=== PATIENT | female | born 1990 | race Caucasian/White ===

== ENCOUNTER 2017-05-22 15:14 | Emergency (ER) | payer MEDICAID ==
[2017-05-22] MEDS ORDERED: Proparacaine 0.5% Ophth Soln 15 ML Bottle EYEBOTH STA (15:42)
[2017-05-22 15:49] VITALS: BP 117/76
--- NOTE | 2017-05-22 16:21 | EDM.PDOC ---
ED HPI GENERAL MEDICAL PROBLEM - General Chief Complaint: Eye Problems Stated Complaint: EYE INJURY Time Seen by Provider: 05/22/17 16:07 Source of Information: Reports: Patient, Family, RN Notes Reviewed History Limitations: Reports: No Limitations - History of Present Illness INITIAL COMMENTS - FREE TEXT/NARRATIVE: 26-year-old female presents emergency department today with complaint of trauma to her left eye, this occurred earlier in the day when her 2-year-old accidentally poked her finger into her eye she is having some blurry vision and it is painful when she blinks Left Eye Pain Score (Numeric/FACES): 4 - Related Data Allergies Allergy/AdvReac Type Severity Reaction Status Date / Time No Known Allergies Allergy Verified 05/22/15 00:08 Home Meds: Home Meds NK [No Known Home Meds] 05/22/15 [History] Past Medical History [employer] History: Reports: Other OB/BYN History: irregular periods Social & Family History - Tobacco Use Smoking Status *Q: Former Smoker Years of Tobacco use: 10 Packs/Tins Daily: 1 Used Tobacco, but Quit: No - Caffeine Use Caffeine Use: Reports: Soda - Recreational Drug Use Recreational Drug Use: No ED ROS GENERAL - Review of Systems Review Of Systems: See Below Constitutional: Reports: No Symptoms HEENT: Reports: Eye Discharge, Eye Pain ED EXAM GENERAL W FULL EYE - Physical Exam Exam: See Below Exam Limited By: No Limitations General Appearance: Alert, WD/WN, No Apparent Distress Visual Acuity (R) 20/: 15 Visual Acuity (L) 20/: 25 With Correction: No Eyelids: Bilateral: Normal Appearance Conjunctiva & Sclera: Bilateral: Normal Appearance Cornea Exam: Right: Corneal Ulcer, Left: Normal Appearance Extraocular Movements: Bilateral: Intact Pupils: Normal Accommodation Pupillary Size: Bilateral: 4 mm Pupillary Reaction: Bilateral: Brisk Course - Vital Signs Last Recorded V/S: Last Vital Signs Temp 97.1 F 05/22/17 15:50 Pulse 77 05/22/17 15:50 Resp 16 05/22/17 15:50 BP 117/76 05/22/17 15:50 Pulse Ox 97 05/22/17 15:50 - Orders/Labs/Meds Meds: Medications Discontinued Medications Generic Name Dose Route Start Last Admin Trade Name Freq PRN Reason Stop Dose Admin Proparacaine HCl 2 ml 05/22/17 15:42 05/22/17 15:47 Proparacaine 0.5% Ophth Soln EYEBOTH 05/22/17 15:43 2 drop NOW STA Administration Departure - Departure Time of Disposition: 16:20 Disposition: Home, Self-Care 01 Condition: Good Clinical Impression: Corneal ulcer Qualifiers: Laterality: left Qualified Code(s): H16.002 - Unspecified corneal ulcer, left eye - Discharge Information Referrals: PCP,None [Primary Care Provider] - Additional Instructions: Take full course of antibiotics, please follow-up with your eye care provider in the next 3-5 days for reevaluation, recommend using a good eye lubricant for the next 2 months, call return to the emergency department worsening of symptoms - Assessment/Plan Plan: Assessment Acuity = acute Site and laterality = corneal abrasion left eye Etiology = secondary to trauma with a finger Manifestations = eye pain Location of injury = Home Lab values = none Plan A small ulcer was identified using fluorescein stain, she was placed on gentamicin ophthalmic drops twice a day pass her follow-up with her eye care provider in the next 3-5 days for further evaluation her tetanus was approximately 5 years ago Patient was in agreement with the plan all questions were answered, they were instructed to return to the emergency department or call for worsening symptoms. This note was dictated using [employer] voice recognition software please call with any questions.
== END 2017-05-22 16:29 | disposition home or self-care (01) ==
LOC: JP.ED 15:14
DX: S05.02XA Injury of conjunctiva and corneal abrasion without foreign body, left eye, initial encounter (principal); H16.002 Unspecified corneal ulcer, left eye; Z87.891 Personal history of nicotine dependence; X58.XXXA Exposure to other specified factors, initial encounter
CPT/HCPCS: 99283; A9270